=== PATIENT | female | born 1940 | race Caucasian/White ===

== ENCOUNTER 2023-07-11 23:22 | Inpatient (IN) | payer OTHER, MEDICAID ==
[~2023-07-11] VITALS: Ht 154.9 cm; Wt 45.4 kg
[2023-07-11 23:25] VITALS: BP 126/81; PULSE 87; RESP 16; TEMP 99.5; O2SAT 99
[2023-07-12] MEDS ORDERED: ACETAMINOPHEN 325 MG TAB PO ONE ×2 (00:05→05:20)
[2023-07-12 00:14] LABS: BASOPHILS % (AUTO) 0.3 % (0.0-2.0); EOSINOPHILS % (AUTO) 0.2 % (0.0-4.0); HEMATOCRIT 27.6 % (36-48); HEMOGLOBIN 9.3 g/dL (12.0-16.0); LYMPHOCYTES # (AUTO) 1.7 K/uL (2.5-16.5); LYMPHOCYTES % (AUTO) 13.7 % (20.5-51.1); MEAN CORPUSCULAR HEMOGLOBIN 29 pg (27-31); MEAN CORPUSCULAR HGB CONC 34 g/dL (33-37); MEAN CORPUSCULAR VOLUME 87.1 fL (80-94); MONOCYTES # (AUTO) 0.6 K/uL (0.8-1.0); MONOCYTES % (AUTO) 4.7 % (1.7-9.3); NEUTROPHILS # (AUTO) 9.8 K/uL (1.8-7.7); NEUTROPHILS % (AUTO) 81.1 % (42.2-75.2); PLATELET COUNT (AUTO) 254 K/uL (140-450); RED BLOOD CELL COUNT(AUTO) 3.17 MIL/uL (4.20-5.40); RED CELL DISTRIBUTION WIDTH 14.3 % (11.6-13.7); WHITE BLOOD COUNT (AUTO) 12.1 K/uL (4.8-10.8)
[2023-07-12 00:31] LABS: FLU A ANTIGEN negative (NEGATIVE); FLU B ANTIGEN NEGATIVE (NEGATIVE)
[2023-07-12 00:37] LABS: APPEARANCE,URINE CLEAR (CLEAR); BILIRUBIN,URINE NEGATIVE (NEGATIVE); BLOOD, URINE TRACE-I (NEGATIVE); COLOR,URINE YELLOW (YELLOW); LEUKOCYTE ESTERASE ,URINE NEGATIVE (NEGATIVE); NITRITE, URINE NEGATIVE (NEGATIVE); PH,URINE 7.5 (5.0-9.0); PROTEIN,URINE NEGATIVE (NEGATIVE); UGLUCOSE NEGATIVE (NEGATIVE)
[2023-07-12] MEDS ORDERED: METO-624 PO (00:38)
[2023-07-12] MEDS ORDERED: METF-1139 PO (00:38)
[2023-07-12 00:43] LABS: BACTERIA,URINE 10-30 (MOD) /HPF (None Seen); MUCUS,URINE 1+ /LPF (None Seen); RBC,URINE 0-5 /HPF (0-5); SQUAMOUS EPITHELIAL CELL,UR 0-3 (FEW) /LPF (0-3 (FEW)); WBC,URINE 0-5 /HPF (0-5)
[2023-07-12 00:45] LABS: ALANINE AMINOTRANSFERASE 30 U/L (12-78); ALBUMIN 3.2 g/dL (3.4-5.0); ALKALINE PHOSPHATASE 135 U/L (50-136); ANION GAP 11.5 (8-16); ASPARTATE AMINOTRANSFERASE 37 U/L (15-37); CALCIUM 9.2 mg/dL (8.5-10.1); CARBON DIOXIDE 25.9 mmol/L (21-32); CHLORIDE 99 mmol/L (98-107); CREATININE 0.6 mg/dL (0.6-1.3); GLUCOSE 157 mg/dL (74-106); POTASSIUM 3.4 mmol/L (3.5-5.1); SODIUM SERUM 133 mmol/L (136-145); TOTAL BILIRUBIN 0.6 mg/dL (0.0-1.0); UREA NITROGEN, BLOOD 22 mg/dL (7-18)
[2023-07-12] MEDS ORDERED: cefTRIAXone 1,000 MG VIAL ONE (00:47)
[2023-07-12 00:51] LABS: LACTIC ACID 1.3 mmol/L (0.4-2.0)
[2023-07-12 01:18] LABS: CREATINE KINASE, TOTAL 50 U/L (26-192)
[2023-07-12] MEDS ORDERED: NACL 0.9% 1,500 ML IV ONE (01:30)
[2023-07-12] MEDS ORDERED: MAGNESIUM OXIDE 400 MG TAB PO PRN (04:50)
[2023-07-12] MEDS ORDERED: MAG SULF 2000 MG/WATER PREMIX 50 ML IV PRN (04:50)
[2023-07-12] MEDS ORDERED: ACETAMINOPHEN 325 MG TAB PO PRN (04:50)
[2023-07-12] MEDS ORDERED: MORPHINE SULFATE 2 MG/ML SYR IVP PRN (04:50)
[2023-07-12] MEDS ORDERED: KCL 20 MEQ IN 100 mL PREMIX 200 ML IV PRN (04:50)
[2023-07-12] MEDS ORDERED: ONDANSETRON 4 MG/2 ML VIAL IVP PRN (04:50)
[2023-07-12] MEDS ORDERED: POTASSIUM CHLORIDE 10 MEQ TABER PO PRN (04:50)
[2023-07-12] MEDS ORDERED: HYDROcodone/APAP 5/325 MG 1 TAB TAB PO PRN (04:50)
[2023-07-12] MEDS: NACL 0.9% 1,000 ML IV SCH ×2 (06:00→21:45)
[2023-07-12] MEDS ORDERED: DEXTROSE 50% 50 ML SYR IVP PRN (08:05)
[2023-07-12] MEDS: AZITHROMYCIN 250 MG in DEXTROSE 5% 250 ML IV SCH (08:47)
[2023-07-12] MEDS: ENOXAPARIN 40 MG/0.4 ML SYR SUBQ SCH (08:51)
[2023-07-12] MEDS: BLOOD GLUCOSE MONITORING 1 DEV DEV FS SCH ×4 (11:00→20:08)
[2023-07-12 13:58] VITALS: PULSE 82; RESP 18; O2SAT 94
[2023-07-12 15:02] VITALS: PULSE 82; RESP 18
[2023-07-12 16:00] VITALS: BP 108/37; PULSE 80; PULSE 89; RESP 18; TEMP 98.3; O2SAT 96
[2023-07-12 20:00] VITALS: BP 109/42; PULSE 80; PULSE 89; RESP 18; TEMP 97.7; O2SAT 97
[2023-07-12] MEDS: INSULIN LISPRO SLIDING SCALE 100 UNITS/ML VIAL SUBQ PRN (20:15)
[2023-07-13] VITALS (9 sets, daily range): BP systolic 113–137; BP diastolic 43–58; PULSE 76–87; RESP 17–18; TEMP 97.5–99.6; O2SAT 94–98
[2023-07-13] MEDS: BLOOD GLUCOSE MONITORING 1 DEV DEV FS SCH ×4 (06:36→20:24)
[2023-07-13 06:49] LABS: BASOPHILS % (AUTO) 0.3 % (0.0-2.0); EOSINOPHILS # (AUTO) 0.1 K/uL (0-0.4); EOSINOPHILS % (AUTO) 0.8 % (0.0-4.0); HEMATOCRIT 25.1 % (36-48); HEMOGLOBIN 8.5 g/dL (12.0-16.0); LYMPHOCYTES # (AUTO) 2.2 K/uL (2.5-16.5); LYMPHOCYTES % (AUTO) 23.9 % (20.5-51.1); MEAN CORPUSCULAR HEMOGLOBIN 30 pg (27-31); MEAN CORPUSCULAR HGB CONC 34 g/dL (33-37); MEAN CORPUSCULAR VOLUME 87.7 fL (80-94); MONOCYTES # (AUTO) 0.7 K/uL (0.8-1.0); NEUTROPHILS # (AUTO) 6.2 K/uL (1.8-7.7); PLATELET COUNT (AUTO) 227 K/uL (140-450); RED BLOOD CELL COUNT(AUTO) 2.86 MIL/uL (4.20-5.40); RED CELL DISTRIBUTION WIDTH 14.2 % (11.6-13.7); WHITE BLOOD COUNT (AUTO) 9.2 K/uL (4.8-10.8)
[2023-07-13 07:35] LABS: ALANINE AMINOTRANSFERASE 18 U/L (12-78); ALBUMIN 2.2 g/dL (3.4-5.0); ALKALINE PHOSPHATASE 91 U/L (50-136); ANION GAP 9.7 (8-16); ASPARTATE AMINOTRANSFERASE 15 U/L (15-37); CALCIUM 8.6 mg/dL (8.5-10.1); CARBON DIOXIDE 23.8 mmol/L (21-32); CHLORIDE 105 mmol/L (98-107); CREATININE 0.5 mg/dL (0.6-1.3); GLUCOSE 134 mg/dL (74-106); MAGNESIUM 1.5 mg/dL (1.8-2.4); POTASSIUM 3.5 mmol/L (3.5-5.1); SODIUM SERUM 135 mmol/L (136-145); TOTAL BILIRUBIN 0.5 mg/dL (0.0-1.0); TOTAL PROTEIN, SERUM 5.3 g/dL (6.4-8.2); UREA NITROGEN, BLOOD 10 mg/dL (7-18)
[2023-07-13] MEDS: ENOXAPARIN 40 MG/0.4 ML SYR SUBQ SCH (08:31)
[2023-07-13] MEDS: AZITHROMYCIN 250 MG in DEXTROSE 5% 250 ML IV SCH (09:00)
[2023-07-13] MEDS: INSULIN LISPRO SLIDING SCALE 100 UNITS/ML VIAL SUBQ PRN ×2 (11:43→20:22)
[2023-07-13] MEDS: POLYETHYLENE GLYCOL 17 GM/PKT PO SCH (13:06)
[2023-07-13] MEDS: NACL 0.9% 1,000 ML IV SCH (13:07)
[2023-07-14] VITALS (10 sets, daily range): BP systolic 126–150; BP diastolic 50–71; PULSE 70–97; RESP 17–20; TEMP 97–97.7; O2SAT 94–98
[2023-07-14] MEDS: NACL 0.9% 1,000 ML IV SCH ×2 (06:16→23:30)
[2023-07-14] MEDS: BLOOD GLUCOSE MONITORING 1 DEV DEV FS SCH ×4 (06:37→20:55)
[2023-07-14 07:09] LABS: BASOPHILS % (AUTO) 0.3 % (0.0-2.0); EOSINOPHILS # (AUTO) 0.1 K/uL (0-0.4); EOSINOPHILS % (AUTO) 1.9 % (0.0-4.0); HEMATOCRIT 25.7 % (36-48); HEMOGLOBIN 8.8 g/dL (12.0-16.0); LYMPHOCYTES # (AUTO) 2.5 K/uL (2.5-16.5); LYMPHOCYTES % (AUTO) 36.3 % (20.5-51.1); MEAN CORPUSCULAR HEMOGLOBIN 29 pg (27-31); MEAN CORPUSCULAR HGB CONC 34 g/dL (33-37); MEAN CORPUSCULAR VOLUME 86.3 fL (80-94); MONOCYTES # (AUTO) 0.4 K/uL (0.8-1.0); MONOCYTES % (AUTO) 6.4 % (1.7-9.3); NEUTROPHILS # (AUTO) 3.8 K/uL (1.8-7.7); NEUTROPHILS % (AUTO) 55.1 % (42.2-75.2); PLATELET COUNT (AUTO) 238 K/uL (140-450); RED BLOOD CELL COUNT(AUTO) 2.98 MIL/uL (4.20-5.40); RED CELL DISTRIBUTION WIDTH 14.4 % (11.6-13.7); WHITE BLOOD COUNT (AUTO) 6.9 K/uL (4.8-10.8)
[2023-07-14 07:32] LABS: ALANINE AMINOTRANSFERASE 21 U/L (12-78); ALBUMIN 2.2 g/dL (3.4-5.0); ALKALINE PHOSPHATASE 91 U/L (50-136); ANION GAP 10.2 (8-16); ASPARTATE AMINOTRANSFERASE 15 U/L (15-37); CALCIUM 8.8 mg/dL (8.5-10.1); CARBON DIOXIDE 25.4 mmol/L (21-32); CHLORIDE 102 mmol/L (98-107); CREATININE 0.5 mg/dL (0.6-1.3); GLUCOSE 139 mg/dL (74-106); MAGNESIUM 2.1 mg/dL (1.8-2.4); POTASSIUM 3.6 mmol/L (3.5-5.1); SODIUM SERUM 134 mmol/L (136-145); TOTAL BILIRUBIN 0.4 mg/dL (0.0-1.0); TOTAL PROTEIN, SERUM 5.5 g/dL (6.4-8.2); UREA NITROGEN, BLOOD 6 mg/dL (7-18)
[2023-07-14] MEDS: POLYETHYLENE GLYCOL 17 GM/PKT PO SCH (08:24)
[2023-07-14] MEDS: ENOXAPARIN 40 MG/0.4 ML SYR SUBQ SCH (08:26)
[2023-07-14] MEDS: AZITHROMYCIN 250 MG in DEXTROSE 5% 250 ML IV SCH (08:50)
[2023-07-14] MEDS: INSULIN LISPRO SLIDING SCALE 100 UNITS/ML VIAL SUBQ PRN ×3 (11:14→20:55)
[2023-07-14] MEDS ORDERED: LORazepam 2 MG/ML VIAL ONE (11:23)
[2023-07-15] VITALS (7 sets, daily range): BP systolic 142–152; BP diastolic 50–71; PULSE 73–86; RESP 17–18; TEMP 97.5–98; O2SAT 96–97
[2023-07-15] MEDS: NACL 0.9% 1,000 ML IV SCH (06:14)
[2023-07-15] MEDS: BLOOD GLUCOSE MONITORING 1 DEV DEV FS SCH ×2 (06:30→11:24)
[2023-07-15 06:39] LABS: BASOPHILS % (AUTO) 0.5 % (0.0-2.0); EOSINOPHILS # (AUTO) 0.2 K/uL (0-0.4); EOSINOPHILS % (AUTO) 3.8 % (0.0-4.0); HEMATOCRIT 26.2 % (36-48); LYMPHOCYTES # (AUTO) 2.5 K/uL (2.5-16.5); LYMPHOCYTES % (AUTO) 43.1 % (20.5-51.1); MEAN CORPUSCULAR HEMOGLOBIN 30 pg (27-31); MEAN CORPUSCULAR HGB CONC 34 g/dL (33-37); MEAN CORPUSCULAR VOLUME 85.8 fL (80-94); MONOCYTES # (AUTO) 0.4 K/uL (0.8-1.0); MONOCYTES % (AUTO) 7.5 % (1.7-9.3); NEUTROPHILS # (AUTO) 2.6 K/uL (1.8-7.7); NEUTROPHILS % (AUTO) 45.1 % (42.2-75.2); PLATELET COUNT (AUTO) 273 K/uL (140-450); RED BLOOD CELL COUNT(AUTO) 3.06 MIL/uL (4.20-5.40); RED CELL DISTRIBUTION WIDTH 14.1 % (11.6-13.7); WHITE BLOOD COUNT (AUTO) 5.7 K/uL (4.8-10.8)
[2023-07-15 06:52] LABS: ALANINE AMINOTRANSFERASE 22 U/L (12-78); ALBUMIN 2.3 g/dL (3.4-5.0); ALKALINE PHOSPHATASE 96 U/L (50-136); ANION GAP 7.4 (8-16); ASPARTATE AMINOTRANSFERASE 17 U/L (15-37); CALCIUM 8.9 mg/dL (8.5-10.1); CARBON DIOXIDE 29.3 mmol/L (21-32); CHLORIDE 103 mmol/L (98-107); CREATININE 0.5 mg/dL (0.6-1.3); GLUCOSE 147 mg/dL (74-106); MAGNESIUM 1.9 mg/dL (1.8-2.4); POTASSIUM 3.7 mmol/L (3.5-5.1); SODIUM SERUM 136 mmol/L (136-145); TOTAL BILIRUBIN 0.3 mg/dL (0.0-1.0); TOTAL PROTEIN, SERUM 5.7 g/dL (6.4-8.2); UREA NITROGEN, BLOOD 9 mg/dL (7-18)
[2023-07-15] MEDS: POLYETHYLENE GLYCOL 17 GM/PKT PO SCH (08:07)
[2023-07-15] MEDS: ENOXAPARIN 40 MG/0.4 ML SYR SUBQ SCH (08:11)
[2023-07-15] MEDS: AZITHROMYCIN 250 MG in DEXTROSE 5% 250 ML IV SCH (08:57)
[2023-07-15] MEDS: INSULIN LISPRO SLIDING SCALE 100 UNITS/ML VIAL SUBQ PRN (11:25)
== END 2023-07-15 13:40 | disposition home health service (06) | DRG 871 ==
LOC: MED 23:22 → MTU 07-12 05:36
PROVIDERS: ADMIT Hospitalist; ATTEND Hospitalist
DX: A41.9 Sepsis, unspecified organism (principal); E43 Unspecified severe protein-calorie malnutrition; J18.9 Pneumonia, unspecified organism; E87.1 Hypo-osmolality and hyponatremia; Z68.1 Body mass index [BMI] 19.9 or less, adult; I10 Essential (primary) hypertension; Z20.822 Contact with and (suspected) exposure to COVID-19; E11.9 Type 2 diabetes mellitus without complications; Z88.5 Allergy status to narcotic agent; Z79.899 Other long term (current) drug therapy
CPT/HCPCS: 36415; 71045; 80053; 81001; 82550; 82948; 83605; 83735; 83880; 84484; 85025; 87040; 87081; 87086; 93005; 96365; 97112; 97116; 99291; J0456; J0696; J1650; J1815; J2060; J3475; J7060; Q0092

== ENCOUNTER 2023-09-16 12:32 | Emergency (ER) | payer OTHER, MEDICAID ==
[~2023-09-16] VITALS: Ht 152.4 cm; Wt 53.1 kg
[~2023-09-16 12:32] MED LIST: METF-1139 PO; METO-624 PO
[2023-09-16 12:56] VITALS: BP 154/71; PULSE 54; RESP 16; TEMP 96.3; O2SAT 100
[2023-09-16 13:26] VITALS: O2SAT 100
[2023-09-16 13:57] LABS: FLU A ANTIGEN negative (NEGATIVE); FLU B ANTIGEN NEGATIVE (NEGATIVE)
[2023-09-16] MEDS ORDERED: CEFP100T18 PO (13:58)
[2023-09-16] MEDS ORDERED: AZIT250T4 PO (13:58)
[2023-09-16 14:44] VITALS: O2SAT 100
== END 2023-09-16 14:13 | disposition home or self-care (01) ==
LOC: MED 12:32
DX: J18.9 Pneumonia, unspecified organism (principal); Z20.822 Contact with and (suspected) exposure to COVID-19; E11.9 Type 2 diabetes mellitus without complications; I10 Essential (primary) hypertension; Z88.5 Allergy status to narcotic agent; Z88.8 Allergy status to other drugs, medicaments and biological substances; Z79.4 Long term (current) use of insulin; Z79.899 Other long term (current) drug therapy
CPT/HCPCS: 71045; 99284

== ENCOUNTER 2023-10-05 11:18 | Emergency (ER) | payer OTHER, MEDICAID ==
[~2023-10-05] VITALS: Ht 157.5 cm; Wt 63.5 kg
[~2023-10-05 11:18] MED LIST changes: +AZIT250T4 PO; +CEFP100T18 PO
[2023-10-05 11:23] VITALS: BP 159/79; PULSE 77; RESP 18; TEMP 97.6; O2SAT 99
[2023-10-05] MEDS: KETOROLAC 60 MG/2 ML VIAL IM ONE (12:05)
[2023-10-05 15:38] VITALS: BP 134/48; PULSE 68; RESP 16; O2SAT 98
== END 2023-10-05 17:12 | disposition home or self-care (01) ==
LOC: MED 11:18
DX: M25.552 Pain in left hip (principal); M54.2 Cervicalgia; M54.50 Low back pain, unspecified; E11.9 Type 2 diabetes mellitus without complications; I10 Essential (primary) hypertension; Z79.4 Long term (current) use of insulin; Z79.899 Other long term (current) drug therapy; Z88.5 Allergy status to narcotic agent; Z79.1 Long term (current) use of non-steroidal anti-inflammatories (NSAID)
CPT/HCPCS: 70450; 72040; 72100; 73502; 96372; 99285; J1885